=== PATIENT | female | born 1960 | race Caucasian/White ===

== ENCOUNTER 2016-06-11 12:43 | Inpatient (IN) | payer OTHER ==
[2016-06-11] VITALS (22 sets, daily range): BP systolic 70–142; BP diastolic 33–75
[~2016-06-11] VITALS: Ht 167.6 cm; Wt 75.7 kg
--- NOTE | ~2016-06-11 | HC ---
[facility] [place] [address] CONSULTATION Name: JEROME CARRERA Room #: 240-P ADM IN M.R.#: [id number] Admission: 06/11/16 Attend Phys: Alfonso Ashley MD Discharge: Date of : 56 Report #: [id number] THIS REPORT FOR: //name// CC: Alfonso Ashley INFECTIOUS DISEASE CONSULTATION REASON FOR CONSULTATION: I was asked to evaluate concerning C. difficile colitis in the setting of alcohol withdrawal. HISTORY OF PRESENT ILLNESS: The patient was a 55-year-old known from her previous hospitalizations. She had a previous right humerus fracture with associated infection. She had been noncompliant with much of her care. While at home, she developed generalized ____ feeling about 3 weeks ago after she increased her alcohol intake. She then stopped alcohol and began having withdrawal. She has had multiple falls, injuring her right ankle, her shoulder and her head. She has had some nausea and vomiting. Urine output had decreased and had become very dark in color. She has become jaundiced. Hospitalized to the emergency room, now in the intensive care unit, receiving IV fluids. No fever or chills. Rectal tube is now in place. Stool for C. diff was positive. ALLERGIES: ALBUMIN INFUSION. MEDICATIONS: As noted on her MAR, now on p.o. vancomycin. She is also on lactulose. PAST MEDICAL HISTORY, FAMILY HISTORY AND SOCIAL HISTORY: Unchanged from her previous consultations and her current history and physical. REVIEW OF SYSTEMS: No cough or sputum production. Otherwise, as noted above. PHYSICAL EXAMINATION: GENERAL: Afebrile and hemodynamically stable. She was alert and cooperative. She was icteric. Multiple ecchymoses to her face, to her arms and to her legs. She is on 2 liters of oxygen per nasal cannula. CHEST: Clear. HEART: Regular, without murmur. ABDOMEN: Soft with fullness in the epigastric region with palpable liver. NEUROLOGIC: Nonfocal. LABORATORY STUDIES: Sodium 128, potassium 3.5, bicarbonate 24, BUN 17, creatinine 3.0, baseline of 2, AST 108, bilirubin 24, alkaline phosphatase 313, ALT 20, albumin 1.7. INR 1.8. WBC 6.5, hemoglobin 7.6, platelet count 98,000. Differential unremarkable. C. diff positive. Urinalysis, 2+ protein, 1+ glucose, 1+ ketones, 3+ bilirubin, moderate wbc's, few bacteria. Stool culture pending. Urine culture, no growth so far. Chest x-ray, basilar opacities, atelectasis. Ultrasound of the abdomen, prominent liver, mild splenomegaly. CT [address] [address] CONSULTATION Name: JEROME CARRERA Room #: 240-P [facility] IN M.R.#: [id number] Admission: 06/11/16 Attend Phys: Alfonso Ashley MD Discharge: Date of : 56 Report #: [id number], maxillary sinuses with air fluid levels, lobar atrophy. IMPRESSION: A 55-year-old with alcohol withdrawal in the setting of hepatic cirrhosis, now with diarrhea consistent with Clostridium difficile associated diarrhea. She also has evidence of maxillary sinus disease. Recommend continue with oral vancomycin and decongestants. I will see how she does over the next 24-48 hours. <ELECTRONICALLY SIGNED> By: Андрей Martins MD 06/14/16 1054 2218 Андрей Martins MD /nt
--- NOTE | ~2016-06-11 | EKG ---
[address] [address] ELECTROCARDIOGRAM REPORT Name: JEROME CARRERA Room #: 240- ADM IN M.R.#: [id number] Admission: 06/11/16 Attend Phys: Alfonso Ashley MD Discharge: Date of : 56 Report #: [id number] THIS REPORT FOR: //name// [facility] ED Test Date: 2016-06-11 Test Time: 13:50:09 Pat Name: JEROME CARRERA Department: Room: [facility] Gender: F Landscape Drafter: Nirmala NORRIS : 1960 Requested By: Eligio Mujica Order Number: [id number] MD: Demian Fine Measurements Intervals [place] Rate: 81 P: 20 MS: 182 QRS: 9 QRSD: 105 T: -78 QT: 484 QTc: 562 Interpretive Statements Sinus rhythm Nonspecific ST and T wave abnormality Prolonged QT interval Compared to ECG 02/16/2016 20:43:40 Prolonged QT interval now present Sinus tachycardia no longer present Electronically Signed On 06-13-2016 7:38:13 CDT by Demian Fine [email or web address] <ELECTRONICALLY SIGNED> By: Demian Fine MD, [facility] 06/13/16 0738 1350 1350 Demian Fine MD, [facility] /EPI
--- NOTE | ~2016-06-11 | H ---
[facility] [place] [address] [place] [address] HISTORY AND PHYSICAL Name: JEROME CARRERA Room #: 240-P [facility] IN M.R.#: [id number] Admission: 06/11/16 Attend Phys: Alfonso Ashley MD Discharge: Date of : 56 Report #: [id number] THIS REPORT FOR: //name// CC: Alfonso Ashley DATE OF SERVICE: 06/11/2016 CHIEF COMPLAINT: Jaundice. HISTORY OF PRESENT ILLNESS: The patient is a 55-year-old female with history of substance abuse and alcohol abuse and cirrhosis who states she had been drinking again for the last 3 weeks after having divorce issues. She has become jaundiced, nauseous and weak. She did have a prior EGD, which showed variceal in 01/2016. She has not had any vomit or blood at this time. PAST MEDICAL HISTORY: Significant for: 1. Prior breast cancer. 2. Alcohol abuse with cirrhosis. 3. Severe anxiety disorder. 4. Prior right humerus fracture after a fall when she was intoxicated. 5. Prior GI bleed. MEDICATIONS: Include spironolactone 25 mg b.i.d., citalopram 20 mg a day, gabapentin 300 mg t.i.d., Prilosec b.i.d., ibuprofen p.r.n. ALLERGIES: No known allergies. SOCIAL HISTORY: She is drinking daily, prior cigarettes and prior recreational drugs. REVIEW OF SYSTEMS: CONSTITUTIONAL: She is fever or chills. HEENT: No headaches or visual changes. CHEST: No chest pain, tightness in chest, short of breath, cough or sputum production. GASTROINTESTINAL: Positive for nausea, vomiting and diarrhea. GENITOURINARY: No burning or frequency. EXTREMITIES: She has right shoulder pain after multiple falls and recent trauma. SKIN: No rashes but she has bruising extensively. NEUROLOGIC: No new focal numbness. PHYSICAL EXAMINATION: VITAL SIGNS: In the ER, blood pressure was 93/55, pulse is 92, respiratory rate 18. She was afebrile. GENERAL: She is extremely jaundiced, appears very weak and frail. [facility] [address] [place] [address] HISTORY AND PHYSICAL Name: JEROME CARRERA Room #: 240-P [facility] IN [facility].#: [id number] Admission: 06/11/16 Attend Phys: Alfonso Ashley MD Discharge: Date of : 56 Report #: [id number] HEENT: Her mucous membranes are dry. NECK: Supple, without adenopathy, thyromegaly or bruits. CHEST: Clear to auscultation. CARDIOVASCULAR: Regular rhythm without murmur. ABDOMEN: Soft, no masses. She is diffusely tender. Bowel sounds are present. EXTREMITIES: Show extensive bruising in her right shoulder and her legs and her face. SKIN: Shows no other skin lesions or sores. LABORATORY EVALUATION: In the ER, initial hemoglobin was 8.4, white count was 8.2. INR was 1.9. Sodium was 123, potassium was 2.9, chloride 92, bicarbonate was 27, BUN was 19, creatinine was 3.4, glucose 237, calcium 7.1. Serum alcohol level was 0 at the time of admission. Her urine showed specific gravity 1.015, protein of 2, ketones of 2, greater than 8. C. difficile is positive. Her AST is 124, her ALT is 21. ASSESSMENT AND PLAN: 1. Alcoholic cirrhosis with acute withdrawal, admit to ICU for withdrawal. Consult GI for the cirrhosis. 2. Acute kidney injury with chronic kidney disease. Consult Nephrology, this may be hepatorenal syndrome. 3. Encephalopathy due to her elevated ammonia, most likely that was 65 on admission. 4. Diarrhea with positive Clostridium difficile. We will start vanco and Flagyl. 5. Prior breast cancer, drains in place. She has not done a reconstruction yet. 6. Mood disorder. Continue home meds. Discussed with the patient this is a very critical situation with her failing liver and kidneys. We will be aggressive with her therapy, but she still may not recover in light of that. We will correct her electrolytes with renal assistance. We will manage her other abnormalities of her hemoglobin, monitoring hemoglobin. We will resume her home meds as much as able to pending what trigger liver trauma. By: 1727 1833 Alfonso Ashley MD /nt
--- NOTE | ~2016-06-11 | HC ---
[facility] [place] [place] [address] CONSULTATION Name: JEROME CARRERA Room #: 240-P ADM IN M.R.#: [id number] Admission: 06/11/16 Attend Phys: Alfonso Ashley MD Discharge: Date of : 56 Report #: [id number] THIS REPORT FOR: //name// CC: Alfonso Ashley DICTATED BY: Alisia SMITH DATE OF SERVICE: 06/11/2016 REASON FOR CONSULTATION: Right shoulder fracture. REFERRING PHYSICIAN: Dr. Ashley. HISTORY OF PRESENT ILLNESS: The patient is a 55-year-old white female with a long history of substance abuse. She presented to the [facility] Room today, 06/11 when she began to feel alcohol withdrawals. She states she has been drinking heavily for the last 3 weeks. She reported in the Emergency Room that she had a fall about 2 weeks ago. Today, she tells me that when she fell she was not under alcohol use. She is able to give details regarding the fall and states hitting her head, shoulder and her foot on the right side as well. She is currently being treated for ETOH abuse and withdrawals. She is currently in isolation for possible C. diff. Currently, the patient is alert and oriented in the ICU. She is a pretty good historian. She is familiar to our service and Dr. Figueroa is who fixed her right humerus fracture about 2 years ago. She is unable to recall why she did not return to see Dr. Figueroa as in his last note, he had requested to have her return for one more x-ray as she was having right humerus pain and contracture seemed to not heal. Currently, she is sitting comfortably in bed, receiving IV fluids. PAST MEDICAL HISTORY: Includes ETOH abuse, ascites, C. diff, depression, esophageal varices, erosive esophagitis, several gastric ulcers, GERD, history of breast cancer with bilateral mastectomies and chemo, cirrhosis, previous right ankle and arm fractures. MEDICATIONS: Please see MAR. ALLERGIES: ALBUMIN. PAST SURGICAL HISTORY: Includes bilateral mastectomies and ORIF in the right humerus. LABORATORY DATA: Pertinent labs include hemoglobin of 8.4, white blood cell count of 8.2, and platelet count of 103. INR 1.9. Critical potassium of 2.4. Imaging of the right shoulder was reviewed. Two views were obtained. Unfortunately, neither view obtained a full view of the plate. The x-rays did show a right acromial process fracture. Right humeral fixation screws and plate [address] [address] CONSULTATION Name: JEROME CARRERA Room #: 240-P [facility] IN ..#: [id number] Admission: 06/11/16 Attend Phys: Alfonso Ashley MD Discharge: Date of : 56 Report #: [id number] were to be backed out. Remote chronic fracture with nonunion. No right ankle or clavicle x-rays were obtained, but will be ordered. Orthopedic assessment of the right ankle demonstrated she has full range of motion of the right ankle with minimal pain. Pain to palpation of the lateral and medial malleolus. Neurovascularly intact with good capillary refill. A +2 effusion of the right talocrural joint. Pitting edema on the right foot. No pain to the right knee with full range of motion. In regards to the right shoulder, she appears to have full range of motion with some minor pain, especially on the AC joint. Mild tenderness to palpation of the acromion. No pain with palpation of the humerus, proximal, mid shaft and distal. Skin is intact with ecchymosis present. Of note, there is also small laceration and ecchymosis present in the right side of her face. IMPRESSION: Chronic right humerus nonunion fracture that was fixated with plates and screws with migration of a screw. New right acromial process fracture. Right ankle pain. PLAN: We will go ahead and obtain a new right shoulder x-rays as her previous views were poor one by not obtaining the entire plate distally as well as the lateral view is not very helpful to rule out other fractures. We will also obtain clavicle and AC joint x-rays, as this is where most of her pain is. In addition, I will obtain three views of the right ankle as she is very tender and has pain in that area. We will continue to follow her as she stays in the hospital as I suspect she will be in the hospital for several days. We thank you for the consult. By: 2230 0119 Noe Tim MD /nt
--- NOTE | ~2016-06-11 | HC ---
[facility] [place] [address] [place] [address] CONSULTATION Name: JEROME CARRERA Room #: 240-P ADM IN M.R.#: [id number] Admission: 06/11/16 Attend Phys: Alfonso Ashley MD Discharge: Date of : 56 Report #: [id number] THIS REPORT FOR: //name// CC: Alfonso Ashley DATE OF SERVICE: 06/11/2016 ATTENDING PHYSICIAN: Alfonso Ashley M.D. REASON FOR CONSULTATION: Elevated creatinine. HISTORY OF PRESENT ILLNESS: The patient known to our service, was hospitalized at this hospital last January with acute alcoholic hepatitis, cirrhosis, acute renal failure and electrolyte abnormalities. At that time, she featured a high ammonia and encephalopathy. She was hospitalized for several days, treated appropriately and discharged, but she did not follow up and began to drink again, has been drinking rather heavily, has developed nausea, vomiting and diarrhea, comes back to the hospital with marked electrolyte abnormalities, markedly jaundiced and is admitted. PAST MEDICAL HISTORY: She has a history of bilateral mastectomies, chemotherapy for breast cancer. She has known cirrhosis with esophageal varices, gastric ulcers, erosive esophagitis and portal gastropathy. She has portal hypertension, which was revealed on her most recent admission last January. SOCIAL HISTORY: Heavy drinker, no alcohol, apparently has gone through a divorce recently. REVIEW OF SYSTEMS: GENERAL: She has been feeling poorly, she is a bit confused. EYES: Vision reasonably good. ENT: Hearing okay. She says she swallows okay and has no mouth ulcers. ENDOCRINE: No diabetes or thyroid disease. RESPIRATORY: She is not short of breath. No pleuritic pain. CARDIAC: No arrhythmias, palpitations, angina or heart failure. GASTROINTESTINAL: She has had the nausea, vomiting and diarrhea. GENITOURINARY: Very dark urine with decreased urine output. EXTREMITIES: No swelling or trauma. NEUROLOGIC: Generalized weakness noted. PHYSICAL EXAMINATION: GENERAL: This is an extremely jaundiced somewhat confused, but pleasant woman. VITAL SIGNS: Nasal cannula oxygen in place. SKIN: Severely jaundiced. SKELETAL: Well developed, well nourished. EYES: Extraocular movements are full. Vision is intact. Hearing is intact. [facility] [address] [place] [address] CONSULTATION Name: JEROME CARRERA Room #: 240-[facility] IN [facility].#: [id number] Admission: 06/11/16 Attend Phys: Alfonso Ashley MD Discharge: Date of : 56 Report #: [id number] Mucous membranes dry. NECK: Supple. CHEST: Clear to auscultation. HEART: Regular. ABDOMEN: Soft, nontender. Spleen tip just barely felt. Liver edge felt slightly below the right costal margin. EXTREMITIES: Show no edema. Pulses intact. LABORATORY DATA: Initially, the hemoglobin 8.4, white count 8.2, MCV is 110, platelets 103. INR is 1.9, no anticoagulants. Sodium initially 122, potassium 1.8, chloride 81, bicarbonate 32, BUN 19, creatinine 3.7, calcium 7.7, phosphorus 2.4, magnesium 1.4. ASSESSMENT AND PLAN: Acute on chronic kidney disease. Her creatinine was up to 4. 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 We do not know of any known previous renal disease and as a matter of fact, her creatinine earlier last year was quite normal at 0.6 last November, again indicating this is likely due to her liver disease. She is extremely jaundiced with a bilirubin up to 26, where it was only as high as 2.7 last admission. AST 124, ALT only 21, alkaline phosphatase 389, all indicative of acute on chronic liver disease as well known. She is unlikely to recover at this time. She is rather ill, I suspect she may have hepatorenal. I suspect given her underlying condition that dialysis will not be indicated, that this may well be a case for comfort and palliative care, IV fluids are being given aggressively. We will replenish her sodium and potassium deficits and magnesium deficit and follow her carefully, but I suspect outcome will be poor in this patient unfortunately. <ELECTRONICALLY SIGNED> By: Javier Garza MD 06/13/16 0832 1808 0006 Soren Fox MD /nt
[~2016-06-11 12:43] MED LIST: ACETAMINOPHEN-1 EAC1 PO; ALEVE220 M1 PO; AMITRIPTYLINE H25 M2 PO; ANCEF 1GM1 GM/50 M1 IV; ATIVAN1 MG PO; AUGMENTIN 875875 MG PO; CALCIUM 500 +1 EAC5 PO; CALCIUM 600 +1 EAC1 PO; CARAFATE 11 GM/10 M1 PO; CEFDINIR300 MG PO; CELEXA20 MG PO; CIPROFLOXACIN750 MG PO; CLEOCIN HCL150 MG PO; COZAAR 25 MG TA25 M2 PO; CRESTOR10 MG PO; ESTROPIPATE1.5 MG PO; FERREX 150 PLU1 EAC1 PO; FLAGYL500 MG PO; GABAPENTIN100 MG PO; GUAIATUSSIN AC10 ML PO; HYDROCODON-ACE1 EA14 PO; HYDROXYZINE HCL25 M1 PO; HYDROXYZINE HCL25 M2 PO; KEFLEX500 MG PO; LASIX 40 MG TAB40 M2 PO; LEVAQUIN 500 M500 M4 PO; MAGOX 400400 MG PO; MENEST2.5 MG PO; MILK THISTLE140 M1 PO; MULTI VITAMIN1 EACH PO; MULTIVITAMINS1 EAC7 PO; NAPROSYN500 MG PO; NOHOMEMEDICATIONS; NORCO 5-325 TA1 EACH; NORCO 5-325 TA1 EACH PO; ONDANSETRON HCL4 M2 PO; PANTOPRAZOLE SO40 M1 PO; PAXIL10 MG; PERCOCET 10-321 EACH PO; PERCOCET 5-3251 EACH PO; PERCOCET PO; POLYSPORIN OINT15 GM TOP; POTASSIUM20 PO; PREMARIN 0.3MG0.3 MG PO; PROTONIX 20 MG20 M1 PO; PROTONIX40 M2 PO; RIFAMPIN 300 M300 M1 PO; SENNA PO; SOF-LAX100 MG PO; SPIRONOLACTONE25 M1 PO; SYMBICORT160 MCG/4. INH; TEARS NATURALE1 EACH OPHTHALMIC; TORSEMIDE20 MG PO; TRAZODONE HCL50 MG PO; TUMS PO; VALIUM5 MG PO; XANAX 0.5 MG0.5 M1 PO; XANAX 0.5 MG0.5 MG PO; ZOFRAN ODT4 MG PO
[2016-06-11 13:42] LABS: ABSOLUTE NEUTROPHILS 6.2 thou/uL (1.4-8.2); BASOPHILS 0.5 % (0.0-2.0); EOSINOPHILS 0.5 % (0.0-3.0); HEMATOCRIT 23.3 % (37.0-47.0); HEMOGLOBIN 8.4 gm/dL (12.0-15.0); LYMPHOCYTES 12.3 % (24.0-44.0); MCH 39.7 pg (26.0-34.0); MCHC 36.1 g/dL (28.0-37.0); MONOCYTES 11.5 % (1.0-8.0); PLATELET COUNT 103 thou/uL (150-400); POLYS 75.2 % (36.0-66.0); RBC 2.12 mil/uL (4.20-5.00); RDW 20.9 % (10.5-14.5); WBC 8.2 thou/uL (4.0-11.0)
[2016-06-11 13:43] LABS: MANUAL DIFF NO
[2016-06-11 13:59] LABS: ANISOCYTOSIS 1+; APTT 34.8 Seconds (24.5-32.8); INR 1.9; MACROCYTES 1+; PROTIME 19.8 Seconds (9.3-11.4)
[2016-06-11 14:01] LABS: CALCIUM 7.7 mg/dL (8.5-10.1); CREATININE 3.7 mg/dL (0.6-1.3); MAGNESIUM 1.4 mg/dL (1.8-2.4); PHOSPHORUS 2.4 mg/dL (2.5-4.9); TOTAL PROTEIN 5.8 g/dL (6.4-8.2)
[2016-06-11 14:13] LABS: POTASSIUM 1.8 mmol/L (3.5-5.1)
[2016-06-11 14:37] LABS: TOTAL BILIRUBIN 26.2 mg/dL (<0.1-1.0)
[2016-06-11 15:07] LABS: FOLIC ACID 3.8 ng/mL (8.6-58.9)
[2016-06-11] MEDS ORDERED: PRILOSEC OTC20 MG PO (15:24)
[2016-06-11] MEDS ORDERED: IBUPROFEN 200200 M1 PO (15:25)
[2016-06-11 17:30] LABS: CALCIUM 6.9 mg/dL (8.5-10.1); CREATININE 3.4 mg/dL (0.6-1.3)
[2016-06-11 17:35] LABS: POTASSIUM 2.4 mmol/L (3.5-5.1)
[2016-06-11 18:53] LABS: URINE BILIRUBIN 3+ (Negative); URINE BLOOD TRACE (Negative); URINE COLOR BROWN; URINE GLUCOSE-RANDOM* 1+ (Negative); URINE KETONES 1+ (Negative); URINE LEUKOCYTES-REFLEX 1+ (Negative); URINE PROTEIN (DIPSTICK) 2+ (Negative); URINE SPECIFIC GRAVITY 1.015 (1.003-1.035); URINE UROBILINOGEN >= 8.0 E.U./dl (0.2-1.0)
[2016-06-11 19:08] LABS: ICTOTEST (BILI CONFIRMATORY) Positive (Negative)
[2016-06-11 19:18] LABS: SQUAMOUS 0-3 Few /LPF (0-3)
[2016-06-11 19:19] LABS: CASTS None Seen /LPF (None Seen); CRYSTALS None Seen /LPF (None Seen); URINE RBC 0-2 Rare /HPF (0-2)
[2016-06-12] VITALS (25 sets, daily range): BP systolic 97–176; BP diastolic 49–86
[2016-06-12 03:09] LABS: URINE POTASSIUM-RANDOM* 47.1 mmol/L (Not Estab.)
[2016-06-12 04:12] LABS: URINE CREATININE-RANDOM* 251.4 mg/dL (Not Estab.)
[2016-06-12 04:57] LABS: HEMATOCRIT 21.7 % (37.0-47.0); HEMOGLOBIN 7.6 gm/dL (12.0-15.0); MCH 39.3 pg (26.0-34.0); MCHC 34.8 g/dL (28.0-37.0); MCV 112.7 fL (80.0-100.0); RBC 1.93 mil/uL (4.20-5.00); RDW 22.1 % (10.5-14.5); WBC 6.5 thou/uL (4.0-11.0)
[2016-06-12 05:08] LABS: INR 1.8; MAGNESIUM 2.4 mg/dL (1.8-2.4); PHOSPHORUS 3.8 mg/dL (2.5-4.9); PROTIME 18.8 Seconds (9.3-11.4)
[2016-06-12 05:19] LABS: ALBUMIN 1.7 g/dL (3.4-5.0); CALCIUM 7.1 mg/dL (8.5-10.1); CREATININE 3.5 mg/dL (0.6-1.3); TOTAL BILIRUBIN 24.8 mg/dL (<0.1-1.0); TOTAL PROTEIN 5.1 g/dL (6.4-8.2)
[2016-06-12 05:31] LABS: POTASSIUM 2.8 mmol/L (3.5-5.1)
[2016-06-12 12:22] LABS: CALCIUM 7.1 mg/dL (8.5-10.1); CREATININE 3.4 mg/dL (0.6-1.3)
[2016-06-12 12:25] LABS: POTASSIUM 3.9 mmol/L (3.5-5.1)
[2016-06-12 17:48] LABS: CALCIUM 7.3 mg/dL (8.5-10.1); POTASSIUM 3.5 mmol/L (3.5-5.1)
[2016-06-13] VITALS (20 sets, daily range): BP systolic 103–158; BP diastolic 45–83
[2016-06-13 05:50] LABS: HEMATOCRIT 22.7 % (37.0-47.0); HEMOGLOBIN 7.9 gm/dL (12.0-15.0); MCV 114.3 fL (80.0-100.0); RBC 1.98 mil/uL (4.20-5.00); RDW 23.2 % (10.5-14.5); WBC 6.2 thou/uL (4.0-11.0)
[2016-06-13 06:03] LABS: INR 1.8; PROTIME 18.7 Seconds (9.3-11.4)
[2016-06-13 06:10] LABS: ALBUMIN 1.6 g/dL (3.4-5.0); CALCIUM 7.5 mg/dL (8.5-10.1); CREATININE 2.2 mg/dL (0.6-1.3); MAGNESIUM 2.1 mg/dL (1.8-2.4); PHOSPHORUS 2.7 mg/dL (2.5-4.9); POTASSIUM 3.8 mmol/L (3.5-5.1); TOTAL PROTEIN 5.1 g/dL (6.4-8.2)
[2016-06-13 06:50] LABS: TOTAL BILIRUBIN 24.8 mg/dL (<0.1-1.0)
[2016-06-14] VITALS (16 sets, daily range): BP systolic 110–157; BP diastolic 44–90
[2016-06-14 05:39] LABS: HEMATOCRIT 23.4 % (37.0-47.0); HEMOGLOBIN 8.2 gm/dL (12.0-15.0); MCH 40.4 pg (26.0-34.0); MCHC 35.2 g/dL (28.0-37.0); MCV 114.7 fL (80.0-100.0); RBC 2.04 mil/uL (4.20-5.00); RDW 23.9 % (10.5-14.5); WBC 6.1 thou/uL (4.0-11.0)
[2016-06-14 05:48] LABS: INR 1.7; PROTIME 17.3 Seconds (9.3-11.4)
[2016-06-14 05:56] LABS: ALBUMIN 1.7 g/dL (3.4-5.0); CALCIUM 8.1 mg/dL (8.5-10.1); CREATININE 1.6 mg/dL (0.6-1.3); PHOSPHORUS 3.5 mg/dL (2.5-4.9); POTASSIUM 3.7 mmol/L (3.5-5.1)
[2016-06-14 06:43] LABS: TOTAL BILIRUBIN 26.1 mg/dL (<0.1-1.0); TOTAL PROTEIN 5.6 g/dL (6.4-8.2)
[2016-06-15] VITALS (24 sets, daily range): BP systolic 120–188; BP diastolic 51–102
[2016-06-15 05:12] LABS: HEMATOCRIT 24.9 % (37.0-47.0); HEMOGLOBIN 8.7 gm/dL (12.0-15.0); MCH 40.8 pg (26.0-34.0); MCHC 34.8 g/dL (28.0-37.0); MCV 117.1 fL (80.0-100.0); RBC 2.13 mil/uL (4.20-5.00); RDW 24.5 % (10.5-14.5)
[2016-06-15 05:27] LABS: INR 1.6; PROTIME 16.2 Seconds (9.3-11.4)
[2016-06-15 05:29] LABS: ALBUMIN 1.9 g/dL (3.4-5.0); CALCIUM 8.2 mg/dL (8.5-10.1); CREATININE 1.6 mg/dL (0.6-1.3)
[2016-06-15 06:53] LABS: TOTAL BILIRUBIN 28.6 mg/dL (<0.1-1.0); TOTAL PROTEIN 5.7 g/dL (6.4-8.2)
[2016-06-16] VITALS (12 sets, daily range): BP systolic 125–160; BP diastolic 48–80
[2016-06-16 03:39] LABS: ALBUMIN 1.8 g/dL (3.4-5.0); CALCIUM 8.3 mg/dL (8.5-10.1); CREATININE 1.4 mg/dL (0.6-1.3); MAGNESIUM 1.7 mg/dL (1.8-2.4); PHOSPHORUS 3.4 mg/dL (2.5-4.9); TOTAL PROTEIN 5.5 g/dL (6.4-8.2)
[2016-06-16 04:04] LABS: TOTAL BILIRUBIN 30.3 mg/dL (<0.1-1.0)
[2016-06-17 03:55] VITALS: BP 138/61
[2016-06-17 08:00] VITALS: BP 145/60
[2016-06-17 12:00] VITALS: BP 137/50
[2016-06-17 15:52] VITALS: BP 120/50
[2016-06-17 19:24] VITALS: BP 150/63
[2016-06-18 04:11] VITALS: BP 141/63
[2016-06-18 08:50] VITALS: BP 150/61
[2016-06-18 12:45] VITALS: BP 131/64
[2016-06-18 15:26] LABS: ALBUMIN 1.8 g/dL (3.4-5.0); ANION GAP 9 mmol/L (7-16); BUN 20 mg/dL (7-18); CALCIUM 8.2 mg/dL (8.5-10.1); CHLORIDE 111 mmol/L (98-107); CO2 22 mmol/L (21-32); CREATININE 1.3 mg/dL (0.6-1.3); GLUCOSE 202 mg/dL (70-99); POTASSIUM 4.2 mmol/L (3.5-5.1); SGOT 201 U/L (15-37); SGPT 96 U/L (30-65); SODIUM 142 mmol/L (136-145)
[2016-06-18 15:44] LABS: ALKALINE PHOSPHATASE 374 U/L (46-116)
[2016-06-18 15:49] LABS: TOTAL BILIRUBIN > 25.0 mg/dL (<0.1-1.0)
[2016-06-18 16:00] VITALS: BP 163/55
[2016-06-18 20:06] VITALS: BP 109/51
[2016-06-19 05:17] VITALS: BP 138/54
[2016-06-19 08:55] VITALS: BP 173/53
[2016-06-19 12:56] VITALS: BP 113/68
[2016-06-19 17:15] VITALS: BP 145/53
[2016-06-19 19:11] VITALS: BP 164/67
[2016-06-20 04:31] VITALS: BP 139/61
[2016-06-20 05:30] LABS: HEMATOCRIT 22.8 % (37.0-47.0); MCH 41.8 pg (26.0-34.0); MCHC 34.9 g/dL (28.0-37.0); MCV 119.6 fL (80.0-100.0); RBC 1.9 mil/uL (4.20-5.00); RDW 22.7 % (10.5-14.5); WBC 10.6 thou/uL (4.0-11.0)
[2016-06-20 06:22] LABS: ALBUMIN 1.7 g/dL (3.4-5.0); CALCIUM 8.2 mg/dL (8.5-10.1); CREATININE 1.4 mg/dL (0.6-1.3); POTASSIUM 4.1 mmol/L (3.5-5.1); TOTAL BILIRUBIN 31.9 mg/dL (<0.1-1.0)
[2016-06-20 07:32] VITALS: BP 143/62
[2016-06-20 11:54] VITALS: BP 137/72
[2016-06-20 15:41] VITALS: BP 156/56
[2016-06-20 19:40] VITALS: BP 125/64
[2016-06-21 04:00] VITALS: BP 121/49
[2016-06-21 05:34] LABS: INR 1.5; PROTIME 15.7 Seconds (9.3-11.4)
[2016-06-21 06:03] LABS: ALBUMIN 1.6 g/dL (3.4-5.0); DIRECT BILIRUBIN 25.5 mg/dL (<0.1-0.3); TOTAL BILIRUBIN 32.5 mg/dL (<0.1-1.0); TOTAL PROTEIN 4.9 g/dL (6.4-8.2)
[2016-06-21 07:10] VITALS: BP 121/61
[2016-06-21 11:46] VITALS: BP 144/58
[2016-06-21 16:26] VITALS: BP 142/67
[2016-06-21 20:30] VITALS: BP 162/62
[2016-06-22 04:00] VITALS: BP 127/61
[2016-06-22 04:14] LABS: INR 1.5; PROTIME 15.9 Seconds (9.3-11.4)
[2016-06-22 05:15] LABS: ALBUMIN 1.6 g/dL (3.4-5.0); DIRECT BILIRUBIN 23.9 mg/dL (<0.1-0.3); TOTAL BILIRUBIN 29.8 mg/dL (<0.1-1.0); TOTAL PROTEIN 4.7 g/dL (6.4-8.2)
[2016-06-22 07:49] VITALS: BP 143/61
[2016-06-22 11:34] VITALS: BP 141/65
[2016-06-22 16:33] VITALS: BP 133/73
[2016-06-22 17:02] VITALS: BP 133/73
[2016-06-22 20:57] VITALS: BP 132/71
[2016-06-23 05:07] VITALS: BP 142/69
[2016-06-23 08:00] VITALS: BP 158/76
[2016-06-23] MEDS ORDERED: PREDNISONE 20 M20 M1 PO (08:41)
[2016-06-23 09:14] VITALS: BP 133/73
== END 2016-06-23 11:30 | disposition hospice, home (50) | DRG 441 ==
LOC: ER 12:43 → EROBS 13:31 → ICU 13:31 → 4S 06-16 10:56
PROVIDERS: Emergency Medicine; Family Medicine; Internal Medicine Gastroenterology; Internal Medicine Nephrology; Nurse Practitioner Adult Health; Specialist
DX: K72.90 Hepatic failure, unspecified without coma (principal); K76.7 Hepatorenal syndrome; K65.2 Spontaneous bacterial peritonitis; E43 Unspecified severe protein-calorie malnutrition; N17.9 Acute kidney failure, unspecified; A04.7 Enterocolitis due to Clostridium difficile; L03.311 Cellulitis of abdominal wall; F10.231 Alcohol dependence with withdrawal delirium; F10.221 Alcohol dependence with intoxication delirium; K70.30 Alcoholic cirrhosis of liver without ascites; Z85.3 Personal history of malignant neoplasm of breast; E87.8 Other disorders of electrolyte and fluid balance, not elsewhere classified; J01.90 Acute sinusitis, unspecified; X58.XXXA Exposure to other specified factors, initial encounter; S42.121A Displaced fracture of acromial process, right shoulder, initial encounter for closed fracture; R79.89 Other specified abnormal findings of blood chemistry; N61.1 Abscess of the breast and nipple; D69.6 Thrombocytopenia, unspecified; R74.0 Nonspecific elevation of levels of transaminase and lactic acid dehydrogenase [LDH]; K21.9 Gastro-esophageal reflux disease without esophagitis; F32.9 Major depressive disorder, single episode, unspecified; J40 Bronchitis, not specified as acute or chronic; R07.9 Chest pain, unspecified; E83.51 Hypocalcemia; E87.6 Hypokalemia; E83.42 Hypomagnesemia; R09.02 Hypoxemia; D70.9 Neutropenia, unspecified; R50.81 Fever presenting with conditions classified elsewhere; M25.571 Pain in right ankle and joints of right foot; N64.89 Other specified disorders of breast; N18.9 Chronic kidney disease, unspecified; F39 Unspecified mood [affective] disorder; F41.9 Anxiety disorder, unspecified; Z87.891 Personal history of nicotine dependence; Y93.89 Activity, other specified; Y92.89 Other specified places as the place of occurrence of the external cause; Y99.8 Other external cause status; Z92.21 Personal history of antineoplastic chemotherapy; Z68.27 Body mass index [BMI] 27.0-27.9, adult; Z90.13 Acquired absence of bilateral breasts and nipples; Z87.81 Personal history of (healed) traumatic fracture; Z79.899 Other long term (current) drug therapy
CPT/HCPCS: 10078; 10100